=== PATIENT | male | born 1940 | race Caucasian/White ===

== ENCOUNTER → 2016-08-05 | Outpatient (CLI) | payer MEDICARE, BC | END | disposition home or self-care (01) | LOC: RESC 08-01 10:41 | DX: R06.02 Shortness of breath (principal) ==

== ENCOUNTER → 2016-11-25 | Outpatient (CLI) | payer MEDICARE, BC | END | disposition home or self-care (01) | LOC: PTH.S 10:30 → RAD.S 11:11 | DX: J44.9 Chronic obstructive pulmonary disease, unspecified (principal); R06.02 Shortness of breath; R06.00 Dyspnea, unspecified; K76.0 Fatty (change of) liver, not elsewhere classified; E27.8 Other specified disorders of adrenal gland ==